=== PATIENT | male | born 1980 | race Caucasian/White ===

== ENCOUNTER → 2018-10-23 | Outpatient (REF) | payer OTHER ==
[2018-10-23 14:50] LABS: FREE T4 1.13 NG/DL (0.76-1.46); THYROID STIMULATING HORMONE 0.012 uIU/ML (0.358-3.740)
[2018-10-30 07:27] LABS: THRYOGLOBULIN ANTIBODIES (ATA) < 1.0 IU/ML
[2018-10-30 07:28] LABS: THYROGLOBULIN QUANTITATIVE < 0.1 NG/ML
== END ==
LOC: M LABDRAW1 13:36
PROVIDERS: ATTEND Internal Medicine Endocrinology, Diabetes & Metabolism
DX: C73 Malignant neoplasm of thyroid gland (principal); E89.0 Postprocedural hypothyroidism

== ENCOUNTER → 2019-12-12 | Outpatient (CLI) | payer OTHER ==
[2019-12-12 16:23] LABS: FREE T4 1.6 NG/DL (0.76-1.46); THYROID STIMULATING HORMONE 0.141 uIU/ML (0.358-3.740)
== END ==
LOC: M PLALAB 11:53
PROVIDERS: ATTEND Internal Medicine Endocrinology, Diabetes & Metabolism
DX: E89.0 Postprocedural hypothyroidism (principal)